=== PATIENT | female | born 1985 | race Caucasian/White ===

== ENCOUNTER 2018-04-06 11:49 | Inpatient (IN) | payer OTHER ==
--- NOTE | 2018-04-06 13:11 | HP ---
[facility] Rehab Assess/Revision - Admission History Admitted to Rehab from: [facility] Date of Admission to Rehab: 04/06/18 - Vital signs Vital Signs: Vital Signs Period Temp Pulse Resp BP Sys/Newell Pulse Ox Last 24 Hr 97.7 F 80 18 112/73 - Findings Detox History & Physical reviewed: Yes Concur with findings: Yes Comments/Additional Findings: for rehab as protocol Inpatient Rehab Admission - Initial Determination Are CD services needed?: Yes Free of communicable disease: Yes Not in need of hospitalization: Yes - Rehab Admission Criteria Previous failed treatment: Yes Poor recovery environment: Yes Comorbidities: Yes Lacks judgement: No Patient is meeting Inpatient Rehab admission criteria:: Yes
[2018-04-06] MEDS ORDERED: MAG HYDROX/AL HYDROX/SIMETH 30 ML UNIT-DOSE CUP PO PRN (13:12)
[2018-04-06] MEDS ORDERED: guaiFENesin/D-METHORPHAN HB 10 ML UNIT-DOSE CUPS PO PRN (13:12)
[2018-04-06] MEDS ORDERED: MAGNESIUM HYDROX 2400MG/30ML ORAL SUSPENSION 30 ML CUP PO PRN (13:12)
[2018-04-06] MEDS ORDERED: LOPERAMIDE HCL 2 MG CAPSULE PO PRN (13:12)
[2018-04-06] MEDS ORDERED: MENTHOL/PHENOL 1 EACH UD MM PRN (13:12)
[2018-04-06] MEDS ORDERED: MAGNESIUM CITRATE 300 ML BOTTLE PO PRN (13:12)
[2018-04-06] MEDS ORDERED: P-EPHED 60MG/TRIPROLIDI 2.5MG TABLET PO PRN (13:12)
[2018-04-06] MEDS: LITHIUM CARBONATE 300 MG CAPSULE (FP) PO SCH ×2 (17:40→21:48)
[2018-04-06] MEDS: ESCITALOPRAM OXALATE 20 MG TABLET (FP) PO SCH (17:40)
[2018-04-06] MEDS: THIAMINE HCL 100 MG TABLET (FP) PO SCH (21:47)
[2018-04-06] MEDS: levETIRAcetam 500 MG TABLET (FP) PO SCH (21:49)
[2018-04-06] MEDS ORDERED: MELATONIN 5 MG TABLETS PO PRN (22:00)
--- NOTE | 2018-04-06 23:06 | PN ---
S Progress Note Note: Vital Signs Temperature 97.7 F 04/06/18 12:10 Pulse Rate 80 04/06/18 12:10 Respiratory Rate 18 04/06/18 12:10 Blood Pressure 112/73 04/06/18 12:10 O2 Sat by Pulse Oximetry (%) keppra levels 04/03/18 at 8.4, asymptomatic. Repeat levels in AM.
[2018-04-07] MEDS ORDERED: METHADONE HCL 40 MG DISPERSABLE TABLET PO SCH (06:00)
[2018-04-07] MEDS ORDERED: METHADONE HCL 40 MG DISPERSABLE TABLET ONE (06:06)
[2018-04-07] MEDS ORDERED: METHADONE HCL 5 MG TABLET ONE (06:06)
[2018-04-07] MEDS ORDERED: METHADONE HCL 10 MG TABLET ONE (06:06)
[2018-04-07] MEDS: LITHIUM CARBONATE 300 MG CAPSULE (FP) PO SCH ×3 (06:48→21:44)
[2018-04-07] MEDS: METHADONE 80 MG, METHADONE 10 MG, METHADONE 5 MG PO SCH (06:49)
[2018-04-07] MEDS: PRENATAL VITAMINS W/ FOLIC ACID TABLET (FP) PO SCH (10:11)
[2018-04-07] MEDS: ESCITALOPRAM OXALATE 20 MG TABLET (FP) PO SCH (10:11)
[2018-04-07] MEDS: levETIRAcetam 500 MG TABLET (FP) PO SCH ×2 (10:11→21:44)
[2018-04-07] MEDS: RANITIDINE HCL 150 MG TABLET (FP) PO SCH (10:11)
[2018-04-07] MEDS: FUROSEMIDE 20 MG TABLET (FP) PO SCH (10:11)
[2018-04-07] MEDS: THIAMINE HCL 100 MG TABLET (FP) PO SCH (21:44)
[2018-04-08] MEDS ORDERED: METHADONE HCL 5 MG TABLET ONE (03:58)
[2018-04-08] MEDS ORDERED: METHADONE HCL 10 MG TABLET ONE (03:58)
[2018-04-08] MEDS ORDERED: METHADONE HCL 40 MG DISPERSABLE TABLET ONE (03:59)
[2018-04-08] MEDS: LITHIUM CARBONATE 300 MG CAPSULE (FP) PO SCH ×2 (06:37→13:46)
[2018-04-08] MEDS: METHADONE 80 MG, METHADONE 10 MG, METHADONE 5 MG PO SCH (06:37)
[2018-04-08] MEDS: RANITIDINE HCL 150 MG TABLET (FP) PO SCH (10:33)
[2018-04-08] MEDS: levETIRAcetam 500 MG TABLET (FP) PO SCH ×2 (10:33→21:27)
[2018-04-08] MEDS: PRENATAL VITAMINS W/ FOLIC ACID TABLET (FP) PO SCH (10:33)
[2018-04-08] MEDS: FUROSEMIDE 20 MG TABLET (FP) PO SCH (10:33)
[2018-04-08] MEDS: ESCITALOPRAM OXALATE 20 MG TABLET (FP) PO SCH (10:33)
[2018-04-08] MEDS: hydrOXYzine PAMOATE 50 MG CAPSULE (FP) PO PRN ×2 (10:34→21:28)
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
[2018-04-08] MEDS: THIAMINE HCL 100 MG TABLET (FP) PO SCH (21:27)
[2018-04-09] MEDS ORDERED: METHADONE HCL 10 MG TABLET ONE (02:38)
[2018-04-09] MEDS ORDERED: METHADONE HCL 40 MG DISPERSABLE TABLET ONE (02:38)
[2018-04-09] MEDS ORDERED: METHADONE HCL 5 MG TABLET ONE (02:38)
[2018-04-09] MEDS: METHADONE 80 MG, METHADONE 10 MG, METHADONE 5 MG PO SCH (06:41)
[2018-04-09] MEDS: ESCITALOPRAM OXALATE 20 MG TABLET (FP) PO SCH (10:20)
[2018-04-09] MEDS: FUROSEMIDE 20 MG TABLET (FP) PO SCH (10:20)
[2018-04-09] MEDS: PRENATAL VITAMINS W/ FOLIC ACID TABLET (FP) PO SCH (10:20)
[2018-04-09] MEDS: levETIRAcetam 500 MG TABLET (FP) PO SCH ×2 (10:20→21:51)
[2018-04-09] MEDS: RANITIDINE HCL 150 MG TABLET (FP) PO SCH (10:20)
[2018-04-09] MEDS: THIAMINE HCL 100 MG TABLET (FP) PO SCH (21:51)
[2018-04-09] MEDS: hydrOXYzine PAMOATE 50 MG CAPSULE (FP) PO PRN (21:51)
[2018-04-10] MEDS ORDERED: METHADONE HCL 10 MG TABLET ONE (05:50)
[2018-04-10] MEDS ORDERED: METHADONE HCL 5 MG TABLET ONE (05:50)
[2018-04-10] MEDS ORDERED: METHADONE HCL 40 MG DISPERSABLE TABLET ONE (05:51)
[2018-04-10] MEDS: METHADONE 80 MG, METHADONE 10 MG, METHADONE 5 MG PO SCH (06:23)
[2018-04-10] MEDS: ESCITALOPRAM OXALATE 20 MG TABLET (FP) PO SCH (10:36)
[2018-04-10] MEDS: levETIRAcetam 500 MG TABLET (FP) PO SCH ×2 (10:36→21:46)
[2018-04-10] MEDS: RANITIDINE HCL 150 MG TABLET (FP) PO SCH (10:36)
[2018-04-10] MEDS: FUROSEMIDE 20 MG TABLET (FP) PO SCH (10:37)
[2018-04-10] MEDS: PRENATAL VITAMINS W/ FOLIC ACID TABLET (FP) PO SCH (10:37)
--- NOTE | 2018-04-10 12:22 | PN ---
S Progress Note Note: Repeat Keppra level 8.3. Patient asymptomatic. Will continue Keppra as ordered and repeat level 04/13/18.
[2018-04-10] MEDS: hydrOXYzine PAMOATE 50 MG CAPSULE (FP) PO PRN ×2 (13:41→21:46)
[2018-04-10] MEDS: THIAMINE HCL 100 MG TABLET (FP) PO SCH (21:46)
[2018-04-11] MEDS ORDERED: METHADONE HCL 5 MG TABLET ONE (05:57)
[2018-04-11] MEDS ORDERED: METHADONE HCL 40 MG DISPERSABLE TABLET ONE (05:58)
[2018-04-11] MEDS ORDERED: METHADONE HCL 10 MG TABLET ONE (05:58)
[2018-04-11] MEDS: METHADONE 80 MG, METHADONE 10 MG, METHADONE 5 MG PO SCH (06:52)
[2018-04-11] MEDS: RANITIDINE HCL 150 MG TABLET (FP) PO SCH (10:11)
[2018-04-11] MEDS: ESCITALOPRAM OXALATE 20 MG TABLET (FP) PO SCH (10:11)
[2018-04-11] MEDS: PRENATAL VITAMINS W/ FOLIC ACID TABLET (FP) PO SCH (10:11)
[2018-04-11] MEDS: levETIRAcetam 500 MG TABLET (FP) PO SCH ×2 (10:11→22:10)
[2018-04-11] MEDS: FUROSEMIDE 20 MG TABLET (FP) PO SCH (10:11)
[2018-04-11] MEDS: hydrOXYzine PAMOATE 50 MG CAPSULE (FP) PO PRN (22:10)
[2018-04-11] MEDS: THIAMINE HCL 100 MG TABLET (FP) PO SCH (22:10)
[2018-04-11] MEDS ORDERED: PT OWN MED DRAWER 7, Y5N ONE (23:31)
[2018-04-12] MEDS ORDERED: METHADONE HCL 5 MG TABLET ONE (06:00)
[2018-04-12] MEDS ORDERED: METHADONE HCL 10 MG TABLET ONE (06:00)
[2018-04-12] MEDS ORDERED: METHADONE HCL 40 MG DISPERSABLE TABLET ONE (06:01)
[2018-04-12] MEDS: METHADONE 80 MG, METHADONE 10 MG, METHADONE 5 MG PO SCH (06:40)
[2018-04-12] MEDS: FUROSEMIDE 20 MG TABLET (FP) PO SCH (10:25)
[2018-04-12] MEDS: PRENATAL VITAMINS W/ FOLIC ACID TABLET (FP) PO SCH (10:25)
[2018-04-12] MEDS: ESCITALOPRAM OXALATE 20 MG TABLET (FP) PO SCH (10:25)
[2018-04-12] MEDS: levETIRAcetam 500 MG TABLET (FP) PO SCH ×2 (10:26→22:04)
[2018-04-12] MEDS: hydrOXYzine PAMOATE 50 MG CAPSULE (FP) PO PRN ×2 (10:26→22:04)
[2018-04-12] MEDS: RANITIDINE HCL 150 MG TABLET (FP) PO SCH (10:26)
[2018-04-12] MEDS: THIAMINE HCL 100 MG TABLET (FP) PO SCH (22:04)
[2018-04-13] MEDS ORDERED: METHADONE HCL 5 MG TABLET ONE (03:36)
[2018-04-13] MEDS ORDERED: METHADONE HCL 40 MG DISPERSABLE TABLET ONE (03:37)
[2018-04-13] MEDS ORDERED: METHADONE HCL 10 MG TABLET ONE (03:37)
[2018-04-13] MEDS: METHADONE 80 MG, METHADONE 10 MG, METHADONE 5 MG PO SCH (06:56)
[2018-04-13] MEDS: ESCITALOPRAM OXALATE 20 MG TABLET (FP) PO SCH (10:30)
[2018-04-13] MEDS: FUROSEMIDE 20 MG TABLET (FP) PO SCH (10:30)
[2018-04-13] MEDS: RANITIDINE HCL 150 MG TABLET (FP) PO SCH (10:30)
[2018-04-13] MEDS: PRENATAL VITAMINS W/ FOLIC ACID TABLET (FP) PO SCH (10:30)
[2018-04-13] MEDS: levETIRAcetam 500 MG TABLET (FP) PO SCH ×2 (10:30→21:52)
[2018-04-13] MEDS: ACETAMINOPHEN 325 MG TABLET (FP) PO PRN (15:29)
[2018-04-13] MEDS: THIAMINE HCL 100 MG TABLET (FP) PO SCH (21:52)
[2018-04-13] MEDS: hydrOXYzine PAMOATE 50 MG CAPSULE (FP) PO PRN (21:52)
[2018-04-14] MEDS ORDERED: METHADONE HCL 10 MG TABLET ONE (05:54)
[2018-04-14] MEDS ORDERED: METHADONE HCL 5 MG TABLET ONE (05:54)
[2018-04-14] MEDS ORDERED: METHADONE HCL 40 MG DISPERSABLE TABLET ONE (05:55)
[2018-04-14] MEDS: METHADONE 80 MG, METHADONE 10 MG, METHADONE 5 MG PO SCH (06:20)
[2018-04-14] MEDS: RANITIDINE HCL 150 MG TABLET (FP) PO SCH (10:00)
[2018-04-14] MEDS: levETIRAcetam 500 MG TABLET (FP) PO SCH ×2 (10:31→21:48)
[2018-04-14] MEDS: FUROSEMIDE 20 MG TABLET (FP) PO SCH (10:31)
[2018-04-14] MEDS: ESCITALOPRAM OXALATE 20 MG TABLET (FP) PO SCH (10:32)
[2018-04-14] MEDS: PRENATAL VITAMINS W/ FOLIC ACID TABLET (FP) PO SCH (10:32)
[2018-04-14] MEDS: THIAMINE HCL 100 MG TABLET (FP) PO SCH (21:48)
[2018-04-15] MEDS ORDERED: METHADONE HCL 5 MG TABLET ONE (03:32)
[2018-04-15] MEDS ORDERED: METHADONE HCL 10 MG TABLET ONE (03:33)
[2018-04-15] MEDS ORDERED: METHADONE HCL 40 MG DISPERSABLE TABLET ONE (03:33)
[2018-04-15] MEDS: METHADONE 80 MG, METHADONE 10 MG, METHADONE 5 MG PO SCH (06:48)
[2018-04-15] MEDS: PRENATAL VITAMINS W/ FOLIC ACID TABLET (FP) PO SCH (10:33)
[2018-04-15] MEDS: levETIRAcetam 500 MG TABLET (FP) PO SCH ×2 (10:33→22:00)
[2018-04-15] MEDS: RANITIDINE HCL 150 MG TABLET (FP) PO SCH (10:33)
[2018-04-15] MEDS: FUROSEMIDE 20 MG TABLET (FP) PO SCH (10:34)
[2018-04-15] MEDS: ESCITALOPRAM OXALATE 20 MG TABLET (FP) PO SCH (10:34)
[2018-04-15] MEDS: THIAMINE HCL 100 MG TABLET (FP) PO SCH (22:00)
[2018-04-15] MEDS: hydrOXYzine PAMOATE 50 MG CAPSULE (FP) PO PRN (22:00)
[2018-04-16] MEDS ORDERED: METHADONE HCL 5 MG TABLET ONE (03:24)
[2018-04-16] MEDS ORDERED: METHADONE HCL 10 MG TABLET ONE (03:24)
[2018-04-16] MEDS ORDERED: METHADONE HCL 40 MG DISPERSABLE TABLET ONE (03:25)
[2018-04-16] MEDS: METHADONE 80 MG, METHADONE 10 MG, METHADONE 5 MG PO SCH (06:54)
[2018-04-16] MEDS: ESCITALOPRAM OXALATE 20 MG TABLET (FP) PO SCH (10:23)
[2018-04-16] MEDS: levETIRAcetam 500 MG TABLET (FP) PO SCH ×2 (10:23→22:02)
[2018-04-16] MEDS: PRENATAL VITAMINS W/ FOLIC ACID TABLET (FP) PO SCH (10:23)
[2018-04-16] MEDS: FUROSEMIDE 20 MG TABLET (FP) PO SCH (10:23)
[2018-04-16] MEDS: RANITIDINE HCL 150 MG TABLET (FP) PO SCH (10:23)
[2018-04-16] MEDS: ACETAMINOPHEN 325 MG TABLET (FP) PO PRN (18:53)
[2018-04-16] MEDS: hydrOXYzine PAMOATE 50 MG CAPSULE (FP) PO PRN (22:02)
[2018-04-16] MEDS: THIAMINE HCL 100 MG TABLET (FP) PO SCH (22:02)
[2018-04-17] MEDS ORDERED: METHADONE HCL 10 MG TABLET ONE (05:57)
[2018-04-17] MEDS ORDERED: METHADONE HCL 5 MG TABLET ONE (05:57)
[2018-04-17] MEDS ORDERED: METHADONE HCL 40 MG DISPERSABLE TABLET ONE (05:58)
[2018-04-17] MEDS: METHADONE 80 MG, METHADONE 10 MG, METHADONE 5 MG PO SCH (06:47)
[2018-04-17] MEDS: RANITIDINE HCL 150 MG TABLET (FP) PO SCH (11:00)
[2018-04-17] MEDS: ESCITALOPRAM OXALATE 20 MG TABLET (FP) PO SCH (11:00)
[2018-04-17] MEDS: PRENATAL VITAMINS W/ FOLIC ACID TABLET (FP) PO SCH (11:00)
[2018-04-17] MEDS: levETIRAcetam 500 MG TABLET (FP) PO SCH ×2 (11:00→21:50)
[2018-04-17] MEDS: FUROSEMIDE 20 MG TABLET (FP) PO SCH (11:00)
[2018-04-17] MEDS: hydrOXYzine PAMOATE 50 MG CAPSULE (FP) PO PRN (21:50)
[2018-04-17] MEDS: THIAMINE HCL 100 MG TABLET (FP) PO SCH (21:50)
[2018-04-18] MEDS ORDERED: METHADONE HCL 5 MG TABLET ONE (05:09)
[2018-04-18] MEDS ORDERED: METHADONE HCL 40 MG DISPERSABLE TABLET ONE (05:10)
[2018-04-18] MEDS ORDERED: METHADONE HCL 10 MG TABLET ONE (05:10)
[2018-04-18] MEDS: METHADONE 80 MG, METHADONE 10 MG, METHADONE 5 MG PO SCH (06:08)
[2018-04-18] MEDS: FUROSEMIDE 20 MG TABLET (FP) PO SCH (10:15)
[2018-04-18] MEDS: levETIRAcetam 500 MG TABLET (FP) PO SCH ×2 (10:20→21:40)
[2018-04-18] MEDS: RANITIDINE HCL 150 MG TABLET (FP) PO SCH (10:20)
[2018-04-18] MEDS: ESCITALOPRAM OXALATE 20 MG TABLET (FP) PO SCH (10:21)
[2018-04-18] MEDS: PRENATAL VITAMINS W/ FOLIC ACID TABLET (FP) PO SCH (10:21)
[2018-04-18] MEDS ORDERED: levETIRAcetam 250 MG TABLET (FP) PO ONE (20:40)
[2018-04-18] MEDS: THIAMINE HCL 100 MG TABLET (FP) PO SCH (21:39)
[2018-04-18] MEDS: hydrOXYzine PAMOATE 50 MG CAPSULE (FP) PO PRN (21:40)
[2018-04-19] MEDS ORDERED: METHADONE HCL 5 MG TABLET ONE (03:24)
[2018-04-19] MEDS ORDERED: METHADONE HCL 10 MG TABLET ONE (03:25)
[2018-04-19] MEDS ORDERED: METHADONE HCL 40 MG DISPERSABLE TABLET ONE (03:25)
[2018-04-19] MEDS: METHADONE 80 MG, METHADONE 10 MG, METHADONE 5 MG PO SCH (06:29)
[2018-04-19] MEDS ORDERED: PT OWN MED DRAWER 7, Y5N ONE ×2 (09:02→20:19)
[2018-04-19] MEDS: FUROSEMIDE 20 MG TABLET (FP) PO SCH (10:17)
[2018-04-19] MEDS: PRENATAL VITAMINS W/ FOLIC ACID TABLET (FP) PO SCH (10:17)
[2018-04-19] MEDS: ESCITALOPRAM OXALATE 20 MG TABLET (FP) PO SCH (10:17)
[2018-04-19] MEDS: RANITIDINE HCL 150 MG TABLET (FP) PO SCH (10:17)
[2018-04-19] MEDS: levETIRAcetam 500 MG TABLET (FP) PO SCH ×2 (10:17→21:49)
[2018-04-19] MEDS: THIAMINE HCL 100 MG TABLET (FP) PO SCH (21:49)
[2018-04-19] MEDS: hydrOXYzine PAMOATE 50 MG CAPSULE (FP) PO PRN (21:49)
[2018-04-20] MEDS ORDERED: METHADONE HCL 5 MG TABLET ONE (03:18)
[2018-04-20] MEDS ORDERED: METHADONE HCL 40 MG DISPERSABLE TABLET ONE (03:18)
[2018-04-20] MEDS ORDERED: METHADONE HCL 10 MG TABLET ONE (03:18)
[2018-04-20] MEDS ORDERED: METHADONE HCL 10 MG TABLET PO SCH (06:15)
[2018-04-20] MEDS: METHADONE 80 MG, METHADONE 10 MG, METHADONE 5 MG PO SCH (06:42)
[2018-04-20] MEDS: PRENATAL VITAMINS W/ FOLIC ACID TABLET (FP) PO SCH (10:45)
[2018-04-20] MEDS: FUROSEMIDE 20 MG TABLET (FP) PO SCH (10:45)
[2018-04-20] MEDS: ESCITALOPRAM OXALATE 20 MG TABLET (FP) PO SCH (10:46)
[2018-04-20] MEDS: levETIRAcetam 500 MG TABLET (FP) PO SCH ×2 (10:46→22:30)
[2018-04-20] MEDS: RANITIDINE HCL 150 MG TABLET (FP) PO SCH (10:46)
[2018-04-20] MEDS: hydrOXYzine PAMOATE 50 MG CAPSULE (FP) PO PRN (22:30)
[2018-04-20] MEDS: THIAMINE HCL 100 MG TABLET (FP) PO SCH (22:30)
[2018-04-21] MEDS ORDERED: METHADONE HCL 10 MG TABLET ONE (06:15)
[2018-04-21] MEDS ORDERED: METHADONE HCL 5 MG TABLET ONE (06:15)
[2018-04-21] MEDS ORDERED: METHADONE HCL 40 MG DISPERSABLE TABLET ONE (06:16)
[2018-04-21] MEDS: METHADONE 80 MG, METHADONE 10 MG, METHADONE 5 MG PO SCH (06:46)
[2018-04-21] MEDS ORDERED: PT OWN MED DRAWER 7, Y5N ONE ×4 (09:06→23:01)
[2018-04-21] MEDS: RANITIDINE HCL 150 MG TABLET (FP) PO SCH (09:16)
[2018-04-21] MEDS: ESCITALOPRAM OXALATE 20 MG TABLET (FP) PO SCH (09:16)
[2018-04-21] MEDS: PRENATAL VITAMINS W/ FOLIC ACID TABLET (FP) PO SCH (09:16)
[2018-04-21] MEDS: FUROSEMIDE 20 MG TABLET (FP) PO SCH (09:16)
[2018-04-21] MEDS: levETIRAcetam 500 MG TABLET (FP) PO SCH ×2 (09:16→22:27)
[2018-04-21] MEDS: IBUPROFEN 400 MG TABLET (FP) PO PRN (15:42)
[2018-04-21] MEDS: THIAMINE HCL 100 MG TABLET (FP) PO SCH (22:27)
[2018-04-21] MEDS: hydrOXYzine PAMOATE 50 MG CAPSULE (FP) PO PRN (22:27)
[2018-04-22] MEDS ORDERED: METHADONE HCL 10 MG TABLET ONE (03:20)
[2018-04-22] MEDS ORDERED: METHADONE HCL 5 MG TABLET ONE (03:20)
[2018-04-22] MEDS ORDERED: METHADONE HCL 40 MG DISPERSABLE TABLET ONE (03:20)
[2018-04-22] MEDS: METHADONE 80 MG, METHADONE 10 MG, METHADONE 5 MG PO SCH (06:38)
[2018-04-22] MEDS ORDERED: PT OWN MED DRAWER 7, Y5N ONE (08:48)
[2018-04-22] MEDS: levETIRAcetam 500 MG TABLET (FP) PO SCH ×2 (09:53→21:34)
[2018-04-22] MEDS: ESCITALOPRAM OXALATE 20 MG TABLET (FP) PO SCH (09:53)
[2018-04-22] MEDS: FUROSEMIDE 20 MG TABLET (FP) PO SCH (09:53)
[2018-04-22] MEDS: RANITIDINE HCL 150 MG TABLET (FP) PO SCH (09:53)
[2018-04-22] MEDS: PRENATAL VITAMINS W/ FOLIC ACID TABLET (FP) PO SCH (09:53)
[2018-04-22] MEDS: THIAMINE HCL 100 MG TABLET (FP) PO SCH (21:34)
[2018-04-22] MEDS: hydrOXYzine PAMOATE 50 MG CAPSULE (FP) PO PRN (21:34)
[2018-04-23] MEDS ORDERED: METHADONE HCL 10 MG TABLET ONE (05:10)
[2018-04-23] MEDS ORDERED: METHADONE HCL 5 MG TABLET ONE (05:10)
[2018-04-23] MEDS ORDERED: METHADONE HCL 40 MG DISPERSABLE TABLET ONE (05:11)
[2018-04-23] MEDS: METHADONE 80 MG, METHADONE 10 MG, METHADONE 5 MG PO SCH (06:37)
[2018-04-23] MEDS: PRENATAL VITAMINS W/ FOLIC ACID TABLET (FP) PO SCH (10:16)
[2018-04-23] MEDS: levETIRAcetam 500 MG TABLET (FP) PO SCH ×2 (10:16→21:52)
[2018-04-23] MEDS: ESCITALOPRAM OXALATE 20 MG TABLET (FP) PO SCH (10:16)
[2018-04-23] MEDS: FUROSEMIDE 20 MG TABLET (FP) PO SCH (10:16)
[2018-04-23] MEDS: RANITIDINE HCL 150 MG TABLET (FP) PO SCH (10:16)
[2018-04-23] MEDS: IBUPROFEN 400 MG TABLET (FP) PO PRN ×2 (10:17→21:54)
[2018-04-23] MEDS: hydrOXYzine PAMOATE 50 MG CAPSULE (FP) PO PRN (21:52)
[2018-04-23] MEDS: THIAMINE HCL 100 MG TABLET (FP) PO SCH (21:52)
[2018-04-23] MEDS ORDERED: PT OWN MED DRAWER 7, Y5N ONE (22:30)
[2018-04-24] MEDS ORDERED: METHADONE HCL 40 MG DISPERSABLE TABLET ONE (03:23)
[2018-04-24] MEDS ORDERED: METHADONE HCL 10 MG TABLET ONE (03:23)
[2018-04-24] MEDS ORDERED: METHADONE HCL 5 MG TABLET ONE (03:23)
[2018-04-24] MEDS: METHADONE 80 MG, METHADONE 10 MG, METHADONE 5 MG PO SCH (06:30)
[2018-04-24] MEDS: PRENATAL VITAMINS W/ FOLIC ACID TABLET (FP) PO SCH (10:36)
[2018-04-24] MEDS: RANITIDINE HCL 150 MG TABLET (FP) PO SCH (10:36)
[2018-04-24] MEDS: ESCITALOPRAM OXALATE 20 MG TABLET (FP) PO SCH (10:36)
[2018-04-24] MEDS: FUROSEMIDE 20 MG TABLET (FP) PO SCH (10:36)
[2018-04-24] MEDS: levETIRAcetam 500 MG TABLET (FP) PO SCH ×2 (10:36→22:05)
[2018-04-24] MEDS: THIAMINE HCL 100 MG TABLET (FP) PO SCH (22:05)
[2018-04-24] MEDS: hydrOXYzine PAMOATE 50 MG CAPSULE (FP) PO PRN (22:06)
[2018-04-25] MEDS ORDERED: METHADONE HCL 5 MG TABLET ONE (06:37)
[2018-04-25] MEDS ORDERED: METHADONE HCL 10 MG TABLET ONE (06:37)
[2018-04-25] MEDS: METHADONE 80 MG, METHADONE 10 MG, METHADONE 5 MG PO SCH (06:38)
[2018-04-25] MEDS ORDERED: METHADONE HCL 40 MG DISPERSABLE TABLET ONE (06:38)
[2018-04-25] MEDS: ESCITALOPRAM OXALATE 20 MG TABLET (FP) PO SCH (10:15)
[2018-04-25] MEDS: levETIRAcetam 500 MG TABLET (FP) PO SCH ×2 (10:15→21:53)
[2018-04-25] MEDS: PRENATAL VITAMINS W/ FOLIC ACID TABLET (FP) PO SCH (10:15)
[2018-04-25] MEDS: FUROSEMIDE 20 MG TABLET (FP) PO SCH (10:15)
[2018-04-25] MEDS: RANITIDINE HCL 150 MG TABLET (FP) PO SCH (10:15)
[2018-04-25] MEDS: IBUPROFEN 400 MG TABLET (FP) PO PRN ×2 (11:22→21:54)
[2018-04-25] MEDS ORDERED: PT OWN MED DRAWER 7, Y5N ONE (19:44)
[2018-04-25] MEDS: THIAMINE HCL 100 MG TABLET (FP) PO SCH (21:53)
[2018-04-25] MEDS: hydrOXYzine PAMOATE 50 MG CAPSULE (FP) PO PRN (21:53)
[2018-04-26] MEDS ORDERED: METHADONE HCL 10 MG TABLET ONE (06:35)
[2018-04-26] MEDS ORDERED: METHADONE HCL 5 MG TABLET ONE (06:35)
[2018-04-26] MEDS ORDERED: METHADONE HCL 40 MG DISPERSABLE TABLET ONE (06:36)
[2018-04-26] MEDS: METHADONE 80 MG, METHADONE 10 MG, METHADONE 5 MG PO SCH (06:36)
[2018-04-26] MEDS: FUROSEMIDE 20 MG TABLET (FP) PO SCH (09:41)
[2018-04-26] MEDS: ESCITALOPRAM OXALATE 20 MG TABLET (FP) PO SCH (09:41)
[2018-04-26] MEDS: RANITIDINE HCL 150 MG TABLET (FP) PO SCH (09:41)
[2018-04-26] MEDS: PRENATAL VITAMINS W/ FOLIC ACID TABLET (FP) PO SCH (09:41)
[2018-04-26] MEDS: levETIRAcetam 500 MG TABLET (FP) PO SCH ×2 (09:41→21:46)
[2018-04-26] MEDS: hydrOXYzine PAMOATE 50 MG CAPSULE (FP) PO PRN (21:46)
[2018-04-26] MEDS: THIAMINE HCL 100 MG TABLET (FP) PO SCH (21:46)
[2018-04-27] MEDS ORDERED: METHADONE HCL 5 MG TABLET ONE (06:32)
[2018-04-27] MEDS: METHADONE 80 MG, METHADONE 10 MG, METHADONE 5 MG PO SCH (06:33)
[2018-04-27] MEDS ORDERED: METHADONE HCL 10 MG TABLET ONE (06:33)
[2018-04-27] MEDS ORDERED: METHADONE HCL 40 MG DISPERSABLE TABLET ONE (06:33)
[2018-04-27] MEDS ORDERED: PT OWN MED DRAWER 7, Y5N ONE (08:50)
[2018-04-27] MEDS: PRENATAL VITAMINS W/ FOLIC ACID TABLET (FP) PO SCH (10:37)
[2018-04-27] MEDS: ESCITALOPRAM OXALATE 20 MG TABLET (FP) PO SCH (10:37)
[2018-04-27] MEDS: RANITIDINE HCL 150 MG TABLET (FP) PO SCH (10:37)
[2018-04-27] MEDS: levETIRAcetam 500 MG TABLET (FP) PO SCH ×2 (10:37→21:55)
[2018-04-27] MEDS: FUROSEMIDE 20 MG TABLET (FP) PO SCH (10:37)
[2018-04-27] MEDS: THIAMINE HCL 100 MG TABLET (FP) PO SCH (21:55)
[2018-04-27] MEDS: DOCUSATE SODIUM 100 MG CAPSULE (FP) PO SCH (21:55)
[2018-04-27] MEDS: hydrOXYzine PAMOATE 50 MG CAPSULE (FP) PO PRN (21:55)
[2018-04-28] MEDS ORDERED: METHADONE HCL 40 MG DISPERSABLE TABLET ONE (03:23)
[2018-04-28] MEDS ORDERED: METHADONE HCL 10 MG TABLET ONE (03:23)
[2018-04-28] MEDS ORDERED: METHADONE HCL 5 MG TABLET ONE (03:23)
[2018-04-28] MEDS: METHADONE 80 MG, METHADONE 10 MG, METHADONE 5 MG PO SCH (06:16)
[2018-04-28] MEDS: DOCUSATE SODIUM 100 MG CAPSULE (FP) PO SCH ×3 (06:17→21:33)
[2018-04-28] MEDS: ESCITALOPRAM OXALATE 20 MG TABLET (FP) PO SCH (10:26)
[2018-04-28] MEDS: PRENATAL VITAMINS W/ FOLIC ACID TABLET (FP) PO SCH (10:26)
[2018-04-28] MEDS: levETIRAcetam 500 MG TABLET (FP) PO SCH ×2 (10:26→21:33)
[2018-04-28] MEDS: RANITIDINE HCL 150 MG TABLET (FP) PO SCH (10:26)
[2018-04-28] MEDS: FUROSEMIDE 20 MG TABLET (FP) PO SCH (10:26)
[2018-04-28] MEDS: hydrOXYzine PAMOATE 50 MG CAPSULE (FP) PO PRN (21:33)
[2018-04-28] MEDS: THIAMINE HCL 100 MG TABLET (FP) PO SCH (21:33)
[2018-04-29] MEDS ORDERED: METHADONE HCL 5 MG TABLET ONE (06:01)
[2018-04-29] MEDS ORDERED: METHADONE HCL 40 MG DISPERSABLE TABLET ONE (06:02)
[2018-04-29] MEDS ORDERED: METHADONE HCL 10 MG TABLET ONE (06:02)
[2018-04-29] MEDS: METHADONE 80 MG, METHADONE 10 MG, METHADONE 5 MG PO SCH (06:08)
[2018-04-29] MEDS: DOCUSATE SODIUM 100 MG CAPSULE (FP) PO SCH ×3 (06:08→21:52)
[2018-04-29] MEDS ORDERED: PT OWN MED DRAWER 7, Y5N ONE ×2 (10:01→10:30)
[2018-04-29] MEDS: levETIRAcetam 500 MG TABLET (FP) PO SCH ×2 (10:17→21:52)
[2018-04-29] MEDS: RANITIDINE HCL 150 MG TABLET (FP) PO SCH (10:17)
[2018-04-29] MEDS: FUROSEMIDE 20 MG TABLET (FP) PO SCH (10:17)
[2018-04-29] MEDS: ESCITALOPRAM OXALATE 20 MG TABLET (FP) PO SCH (10:17)
[2018-04-29] MEDS: PRENATAL VITAMINS W/ FOLIC ACID TABLET (FP) PO SCH (10:18)
[2018-04-29] MEDS: THIAMINE HCL 100 MG TABLET (FP) PO SCH (21:52)
[2018-04-29] MEDS: hydrOXYzine PAMOATE 50 MG CAPSULE (FP) PO PRN (21:52)
[2018-04-30] MEDS ORDERED: METHADONE HCL 40 MG DISPERSABLE TABLET ONE (03:24)
[2018-04-30] MEDS ORDERED: METHADONE HCL 5 MG TABLET ONE (03:24)
[2018-04-30] MEDS ORDERED: METHADONE HCL 10 MG TABLET ONE (03:24)
[2018-04-30] MEDS: METHADONE 80 MG, METHADONE 10 MG, METHADONE 5 MG PO SCH (06:27)
[2018-04-30] MEDS: DOCUSATE SODIUM 100 MG CAPSULE (FP) PO SCH ×3 (06:28→21:55)
[2018-04-30] MEDS: RANITIDINE HCL 150 MG TABLET (FP) PO SCH (10:15)
[2018-04-30] MEDS: PRENATAL VITAMINS W/ FOLIC ACID TABLET (FP) PO SCH (10:15)
[2018-04-30] MEDS: levETIRAcetam 500 MG TABLET (FP) PO SCH ×2 (10:15→21:55)
[2018-04-30] MEDS: ESCITALOPRAM OXALATE 20 MG TABLET (FP) PO SCH (10:15)
[2018-04-30] MEDS: FUROSEMIDE 20 MG TABLET (FP) PO SCH (10:15)
[2018-04-30] MEDS: THIAMINE HCL 100 MG TABLET (FP) PO SCH (21:55)
[2018-04-30] MEDS: hydrOXYzine PAMOATE 50 MG CAPSULE (FP) PO PRN (21:56)
[2018-05-01] MEDS ORDERED: METHADONE HCL 5 MG TABLET ONE (06:32)
[2018-05-01] MEDS ORDERED: METHADONE HCL 40 MG DISPERSABLE TABLET ONE (06:33)
[2018-05-01] MEDS ORDERED: METHADONE HCL 10 MG TABLET ONE (06:33)
[2018-05-01] MEDS: DOCUSATE SODIUM 100 MG CAPSULE (FP) PO SCH ×3 (06:33→21:33)
[2018-05-01] MEDS: METHADONE 80 MG, METHADONE 10 MG, METHADONE 5 MG PO SCH (06:34)
[2018-05-01] MEDS: ESCITALOPRAM OXALATE 20 MG TABLET (FP) PO SCH (10:13)
[2018-05-01] MEDS: PRENATAL VITAMINS W/ FOLIC ACID TABLET (FP) PO SCH (10:13)
[2018-05-01] MEDS: RANITIDINE HCL 150 MG TABLET (FP) PO SCH (10:13)
[2018-05-01] MEDS: levETIRAcetam 500 MG TABLET (FP) PO SCH ×2 (10:13→21:33)
[2018-05-01] MEDS: FUROSEMIDE 20 MG TABLET (FP) PO SCH (10:14)
--- NOTE | 2018-05-01 13:50 | PN ---
KALPANA Progress Note Note: Patient reported to RN that she had an aura yesterday. Has history of seizures and last seizure one year ago. Currently on Keppra and lab test for level pending. Patient is medically stable. Denies any symptoms today. Alert and oriented x 3. In NAD. Ambulating in unit freely. Will continue same dose of keppra. Continue to monitor clinically. Vital Signs Temperature 98.0 F 05/01/18 07:23 Pulse Rate 79 05/01/18 09:22 Respiratory Rate 18 05/01/18 07:23 Blood Pressure 119/80 05/01/18 09:22 O2 Sat by Pulse Oximetry (%)
[2018-05-01] MEDS: THIAMINE HCL 100 MG TABLET (FP) PO SCH (21:33)
[2018-05-01] MEDS: hydrOXYzine PAMOATE 50 MG CAPSULE (FP) PO PRN (21:33)
[2018-05-02] MEDS ORDERED: METHADONE HCL 5 MG TABLET ONE (03:28)
[2018-05-02] MEDS ORDERED: METHADONE HCL 10 MG TABLET ONE (03:28)
[2018-05-02] MEDS ORDERED: METHADONE HCL 40 MG DISPERSABLE TABLET ONE (03:29)
[2018-05-02] MEDS: METHADONE 80 MG, METHADONE 10 MG, METHADONE 5 MG PO SCH (06:30)
[2018-05-02] MEDS: DOCUSATE SODIUM 100 MG CAPSULE (FP) PO SCH ×3 (06:31→21:17)
[2018-05-02] MEDS: levETIRAcetam 500 MG TABLET (FP) PO SCH ×2 (09:46→21:17)
[2018-05-02] MEDS: FUROSEMIDE 20 MG TABLET (FP) PO SCH (09:46)
[2018-05-02] MEDS: PRENATAL VITAMINS W/ FOLIC ACID TABLET (FP) PO SCH (09:46)
[2018-05-02] MEDS: ESCITALOPRAM OXALATE 20 MG TABLET (FP) PO SCH (09:46)
[2018-05-02] MEDS: RANITIDINE HCL 150 MG TABLET (FP) PO SCH (09:46)
[2018-05-02] MEDS: THIAMINE HCL 100 MG TABLET (FP) PO SCH (21:17)
[2018-05-02] MEDS: hydrOXYzine PAMOATE 50 MG CAPSULE (FP) PO PRN (21:17)
[2018-05-02] MEDS ORDERED: PT OWN MED DRAWER 7, Y5N ONE (22:11)
[2018-05-03] MEDS ORDERED: METHADONE HCL 5 MG TABLET ONE (03:08)
[2018-05-03] MEDS ORDERED: METHADONE HCL 40 MG DISPERSABLE TABLET ONE (03:09)
[2018-05-03] MEDS ORDERED: METHADONE HCL 10 MG TABLET ONE (03:09)
[2018-05-03] MEDS: METHADONE 80 MG, METHADONE 10 MG, METHADONE 5 MG PO SCH (06:50)
[2018-05-03] MEDS: DOCUSATE SODIUM 100 MG CAPSULE (FP) PO SCH ×3 (06:51→21:29)
[2018-05-03] MEDS: levETIRAcetam 500 MG TABLET (FP) PO SCH ×2 (10:03→21:29)
[2018-05-03] MEDS: FUROSEMIDE 20 MG TABLET (FP) PO SCH (10:04)
[2018-05-03] MEDS: RANITIDINE HCL 150 MG TABLET (FP) PO SCH (10:04)
[2018-05-03] MEDS: ESCITALOPRAM OXALATE 20 MG TABLET (FP) PO SCH (10:04)
[2018-05-03] MEDS: PRENATAL VITAMINS W/ FOLIC ACID TABLET (FP) PO SCH (10:04)
[2018-05-03] MEDS: hydrOXYzine PAMOATE 50 MG CAPSULE (FP) PO PRN (21:29)
[2018-05-03] MEDS: THIAMINE HCL 100 MG TABLET (FP) PO SCH (21:29)
[2018-05-04] MEDS ORDERED: METHADONE 80 MG, METHADONE 10 MG, METHADONE 5 MG PO SCH (06:00)
[2018-05-04] MEDS ORDERED: METHADONE HCL 5 MG TABLET ONE (06:29)
[2018-05-04] MEDS: DOCUSATE SODIUM 100 MG CAPSULE (FP) PO SCH (06:30)
[2018-05-04] MEDS ORDERED: METHADONE HCL 10 MG TABLET ONE (06:30)
[2018-05-04] MEDS ORDERED: METHADONE HCL 40 MG DISPERSABLE TABLET ONE (06:30)
[2018-05-04 07:30] VITALS: TEMP 97.8
--- NOTE | 2018-05-04 08:29 | PN ---
Psychiatric Progress Note Vital Signs: Vital Signs Period Temp Pulse Resp BP Sys/Newell Pulse Ox Last 24 Hr 97.8 F 73-91 18-18 112-128/77-85 Date of Session: 05/04/18 Chief Complaint:: Discharge visit HPI: Opioid dependence ,Alcohol and Sedative dependence comorbid with PTSD, Bipolar disorder. ROS: Significant for Current Medications: Active Medications Generic Name Dose Route Start Last Admin Trade Name Freq PRN Reason Stop Dose Admin Acetaminophen 650 mg 04/06/18 13:12 04/16/18 18:53 Tylenol - PO 650 mg Q4H PRN Administration FEVER Al Hydroxide/Mg Hydroxide 30 ml 04/06/18 13:12 Mylanta Oral Suspension - PO Q6H PRN DYSPEPSIA Docusate Sodium 100 mg 04/27/18 22:00 05/04/18 06:30 Colace - PO 100 mg TID MARY GRACE Administration Escitalopram Oxalate 20 mg 04/06/18 17:00 05/03/18 10:04 Lexapro - PO 20 mg DAILY MARY GRACE Administration Eucalyptus/Menthol/Phenol/Sorbitol 1 each 04/06/18 13:12 Cepastat Lozenge - MM Q4H PRN SORE THROAT Furosemide 20 mg 04/07/18 10:00 05/03/18 10:04 Lasix - PO 20 mg DAILY MARY GRACE Administration Guaifenesin 10 ml 04/06/18 13:12 Robitussin Dm - PO Q6H PRN COUGH Hydroxyzine Pamoate 50 mg 04/06/18 13:12 05/03/18 21:29 Vistaril - PO 50 mg Q4H PRN Administration AGITATION Ibuprofen 400 mg 04/06/18 13:12 04/25/18 21:54 Motrin - PO 400 mg Q6H PRN Administration Pain Level 4-6 Levetiracetam 500 mg 04/06/18 22:00 05/03/18 21:29 Keppra - PO 500 mg BID MARY GRACE Administration Loperamide HCl 4 mg 04/06/18 13:12 Imodium - PO Q6H PRN DIARRHEA Magnesium Citrate 300 ml 04/06/18 13:12 Citroma - PO Q48H PRN CONSTIPATION Magnesium Hydroxide 30 ml 04/06/18 13:12 Milk Of Magnesia - PO DAILY PRN CONSTIPATION Melatonin 5 mg 04/06/18 22:00 04/11/18 22:10 Melatonin PO 5 mg HS PRN Administration INSOMNIA Methadone HCl 80 mg/ Methadone 95 mg 05/04/18 06:00 05/04/18 06:31 HCl 10 mg/ Methadone HCl 5 mg PO 05/11/18 05:59 95 mg DAILY@0600 MARY GRACE Administration Multivit/Folic Acid/Iron 1 tab 04/07/18 10:00 05/03/18 10:04 Vitamins (Sjr) - PO 1 tab DAILY MARY GRACE Administration Pseudoephedrine/Triprolidine 1 combo 04/06/18 13:12 Actifed - PO TID PRN NASAL CONGESTION Ranitidine HCl 150 mg 04/07/18 10:00 05/03/18 10:04 Zantac - PO 150 mg DAILY MARY GRACE Administration Thiamine HCl 100 mg 04/06/18 22:00 05/03/18 21:29 Vitamin B1 - PO 100 mg HS MARY GRACE Administration Current Side Effect: No Lab tests ordered: No Lab tests reviewed: Yes Provider note:: Patient completed this program today .She has met her treatment goals and will continue to address her issues on outpatient basis.Patient continue to find that Lexapro 20 mg po daily help to cope with depressed mood , anxiety.Script for 30 days provided. THrapy provided focusing on relapse prevention,coping skills,support utilization as well as other resourses of recovery maintanance has been provided. Patient is stable for discharge today. Total face to face time:: 25 Mental Status Exam - Mental Status Exam Alert and Oriented to: Time, Place, Person Cognitive Function: Grossly Intact Patient Appearance: Well Groomed Mood: Hopeful, Euthymic Affect: Appropriate, Mood Congruent Patient Behavior: Cooperative Voice Loudness: Normal Thought Process: Goal Oriented Thought Disorder: Not Present Hallucinations: Denies Suicidal Ideation: Denies Homicidal Ideation: Denies Insight/Judgement: Fair Sleep: Fair Appetite: Fair Muscle strength/Tone: Normal Gait/Station: Normal Psychiatric Treatment Plan - Problem List (1) Sedative dependence Current Visit: Yes (2) Nicotine dependence Current Visit: Yes Qualifiers: Nicotine product type: cigarettes (3) Opioid dependence on agonist therapy Current Visit: Yes (4) Seizure disorder Current Visit: Yes (5) Bipolar disorder Current Visit: Yes (6) PTSD (post-traumatic stress disorder) Current Visit: Yes (7) Alcohol dependence Current Visit: No
[2018-05-04] MEDS: ESCITALOPRAM OXALATE 20 MG TABLET (FP) PO SCH (09:54)
[2018-05-04] MEDS: FUROSEMIDE 20 MG TABLET (FP) PO SCH (09:54)
[2018-05-04] MEDS: levETIRAcetam 500 MG TABLET (FP) PO SCH (09:54)
[2018-05-04] MEDS: RANITIDINE HCL 150 MG TABLET (FP) PO SCH (09:54)
[2018-05-04 09:59] VITALS: BP 136/87; PULSE 88
[2018-05-04] MEDS: PRENATAL VITAMINS W/ FOLIC ACID TABLET (FP) PO SCH (11:00)
== END 2018-05-04 10:25 | disposition home or self-care (01) | DRG 772 ==
LOC: YASAS 11:49 → Y3E 11:50
PROVIDERS: ADMIT Psychiatry & Neurology Psychiatry; ATTEND Psychiatry & Neurology Psychiatry
PROC: HZ42ZZZ Group Counseling for Substance Abuse Treatment, Cognitive-Behavioral (ICD-10-PCS; principal; 2018-04-06)
DX: F10.20 Alcohol dependence, uncomplicated (principal); F11.20 Opioid dependence, uncomplicated; F13.20 Sedative, hypnotic or anxiolytic dependence, uncomplicated; F17.210 Nicotine dependence, cigarettes, uncomplicated; F31.9 Bipolar disorder, unspecified; F43.10 Post-traumatic stress disorder, unspecified; G40.909 Epilepsy, unspecified, not intractable, without status epilepticus; K21.9 Gastro-esophageal reflux disease without esophagitis; B18.2 Chronic viral hepatitis C
CPT/HCPCS: 36415

== ENCOUNTER 2020-08-09 11:31 | Inpatient (IN) | payer OTHER ==
[2020-08-09 13:17] VITALS: BMI 35.7
[2020-08-09] MEDS ORDERED: cloNIDine HCL 0.1 MG TABLET PO PRN (13:17)
[2020-08-09] MEDS ORDERED: MENTHOL/PHENOL 1 EACH UD MM PRN (13:17)
[2020-08-09] MEDS ORDERED: MAGNESIUM HYDROX 2400MG/30ML ORAL SUSPENSION 30 ML CUP PO PRN (13:17)
[2020-08-09] MEDS ORDERED: MAGNESIUM CITRATE 300 ML BOTTLE PO PRN (13:17)
[2020-08-09] MEDS ORDERED: ONDANSETRON *ODT* 4 MG TABLET SL PRN (13:17)
[2020-08-09] MEDS ORDERED: NICOTINE POLACRILEX 2 MG GUM BUC PRN (13:17)
[2020-08-09] MEDS ORDERED: BISMUTH SUBSALICYLATE 524 MG/30 ML UD PO PRN (13:17)
[2020-08-09] MEDS ORDERED: METHADONE HCL 10 MG TABLET (FOR DETOX USE ONLY) PO ONE (13:17)
[2020-08-09] MEDS ORDERED: ACETAMINOPHEN 325 MG TABLET (FP) PO PRN ×2 (13:17)
[2020-08-09] MEDS ORDERED: MAG HYDROX/AL HYDROX/SIMETH 30 ML UNIT-DOSE CUP PO PRN (13:17)
[2020-08-09] MEDS ORDERED: hydrOXYzine PAMOATE 25 MG CAPSULE (FP) PO SCH (14:00)
[2020-08-09] MEDS: chlordiazePOXIDE HCL 25 MG CAPSULE PO SCH ×3 (14:35→22:06)
[2020-08-09] MEDS: PRENATAL VITAMINS W/ FOLIC ACID TABLET (FP) PO SCH (14:35)
[2020-08-09] MEDS: NICOTINE 14 MG/24 HOURS TOPICAL PATCH TD SCH (14:35)
[2020-08-09] MEDS: hydrOXYzine PAMOATE 25 MG CAPSULE (FP) PO PRN ×2 (14:38→19:20)
[2020-08-09 15:35] LABS: HEMATOCRIT 41.4 % (32.4-45.2); HEMOGLOBIN 13.6 GM/dL (10.7-15.3); MCH 28.4 pg (25.7-33.7); MEAN CELL VOLUME 86.1 fl (80-96); MEAN PLT VOLUME 7.6 fl (7.5-11.1); PLATELET COUNT 320 K/MM3 (134-434); RBC 4.81 M/mm3 (3.60-5.2); RDW 15.4 % (11.6-15.6); WHITE BLOOD COUNT 11.5 K/mm3 (4.0-10.0)
[2020-08-09 15:38] LABS: POTASSIUM 3.9 mmol/L (3.5-5.1)
[2020-08-09 15:40] LABS: CALCIUM 8.9 mg/dL (8.5-10.1)
[2020-08-09 15:41] LABS: ALBUMIN 3.1 g/dl (3.4-5.0); BLOOD UREA NITROGEN 11.6 mg/dL (7-18)
[2020-08-09 15:44] LABS: BILIRUBIN,TOTAL 0.4 mg/dL (0.2-1); TOT PROT 6.8 g/dl (6.4-8.2)
[2020-08-09] MEDS: METHOCARBAMOL 500 MG TABLET PO PRN (18:11)
[2020-08-09] MEDS: IBUPROFEN 400 MG TABLET (FP) PO PRN (19:20)
[2020-08-09] MEDS ORDERED: MELATONIN 5 MG TABLETS PO SCH (22:00)
[2020-08-09] MEDS: THIAMINE HCL 100 MG TABLET (FP) PO SCH (22:06)
[2020-08-10] MEDS: chlordiazePOXIDE HCL 25 MG CAPSULE PO SCH ×4 (06:58→22:34)
[2020-08-10] MEDS: BUPRENORPHINE/NALOXONE 8 MG/2 MG FILM PACKET SL SCH (09:09)
[2020-08-10] MEDS: hydrOXYzine PAMOATE 25 MG CAPSULE (FP) PO PRN (09:09)
[2020-08-10] MEDS ORDERED: METHADONE (DETOX) 20 MG, METHADONE (DETOX) 5 MG PO ONE (10:00)
[2020-08-10] MEDS: PRENATAL VITAMINS W/ FOLIC ACID TABLET (FP) PO SCH (10:21)
[2020-08-10] MEDS: NICOTINE 14 MG/24 HOURS TOPICAL PATCH TD SCH (10:22)
[2020-08-10] MEDS: PANTOPRAZOLE 40 MG TABLET PO SCH (10:30)
[2020-08-10] MEDS: ESCITALOPRAM OXALATE 20 MG TABLET PO SCH (11:58)
[2020-08-10] MEDS: hydrOXYzine PAMOATE 50 MG CAPSULE (FP) PO PRN ×3 (11:59→22:37)
[2020-08-10] MEDS: METHOCARBAMOL 500 MG TABLET PO PRN (15:55)
[2020-08-10] MEDS: IBUPROFEN 400 MG TABLET (FP) PO PRN (17:52)
[2020-08-10] MEDS: SUVOREXANT 10 MG TABLET PO PRN (22:33)
[2020-08-10] MEDS: THIAMINE HCL 100 MG TABLET (FP) PO SCH (22:34)
[2020-08-10] MEDS: MIRTAZAPINE 15 MG TABLET (FP) PO SCH (22:34)
[2020-08-11] MEDS: chlordiazePOXIDE HCL 25 MG CAPSULE PO SCH ×4 (05:54→22:08)
[2020-08-11] MEDS: METHOCARBAMOL 500 MG TABLET PO PRN ×2 (05:55→17:26)
[2020-08-11] MEDS: hydrOXYzine PAMOATE 50 MG CAPSULE (FP) PO PRN ×5 (05:56→22:10)
[2020-08-11] MEDS ORDERED: METHADONE HCL 10 MG TABLET (FOR DETOX USE ONLY) PO ONE (10:00)
[2020-08-11] MEDS: PANTOPRAZOLE 40 MG TABLET PO SCH (10:30)
[2020-08-11] MEDS: ESCITALOPRAM OXALATE 20 MG TABLET PO SCH (10:30)
[2020-08-11] MEDS: PRENATAL VITAMINS W/ FOLIC ACID TABLET (FP) PO SCH (10:31)
[2020-08-11] MEDS: BUPRENORPHINE/NALOXONE 8 MG/2 MG FILM PACKET SL SCH (10:31)
[2020-08-11] MEDS: NICOTINE 14 MG/24 HOURS TOPICAL PATCH TD SCH (10:31)
[2020-08-11] MEDS: LIDOCAINE 5% TOPICAL PATCH TP SCH (13:48)
[2020-08-11] MEDS: chlordiazePOXIDE HCL 25 MG CAPSULE PO PRN ×2 (13:51→19:14)
[2020-08-11] MEDS: HYDROCORTISONE 1% TOPICAL CREAM 30 GM TUBE TP SCH (13:53)
[2020-08-11] MEDS: metroNIDAZOLE 250 MG TABLET PO SCH ×2 (15:11→22:08)
[2020-08-11] MEDS: DOCUSATE SODIUM 100 MG CAPSULE (FP) PO SCH ×2 (15:12→22:08)
[2020-08-11] MEDS: IBUPROFEN 400 MG TABLET (FP) PO PRN (17:28)
[2020-08-11] MEDS: THIAMINE HCL 100 MG TABLET (FP) PO SCH (22:08)
[2020-08-11] MEDS: MIRTAZAPINE 15 MG TABLET (FP) PO SCH (22:08)
[2020-08-11] MEDS: SUVOREXANT 10 MG TABLET PO PRN (22:09)
[2020-08-11] MEDS: LIDOCAINE PATCH REMOVAL MC SCH (22:12)
[2020-08-12] MEDS: chlordiazePOXIDE HCL 10 MG CAPSULE PO PRN ×2 (03:26→13:58)
[2020-08-12] MEDS: hydrOXYzine PAMOATE 50 MG CAPSULE (FP) PO PRN ×4 (03:27→22:09)
[2020-08-12] MEDS: metroNIDAZOLE 250 MG TABLET PO SCH ×3 (05:57→22:07)
[2020-08-12] MEDS: chlordiazePOXIDE HCL 10 MG CAPSULE PO SCH ×4 (05:57→22:09)
[2020-08-12] MEDS: DOCUSATE SODIUM 100 MG CAPSULE (FP) PO SCH ×3 (05:58→22:06)
[2020-08-12] MEDS: METHOCARBAMOL 500 MG TABLET PO PRN ×2 (06:02→15:50)
[2020-08-12] MEDS ORDERED: METHADONE (DETOX) 10 MG, METHADONE (DETOX) 5 MG PO ONE (10:00)
[2020-08-12] MEDS: HYDROCORTISONE 1% TOPICAL CREAM 30 GM TUBE TP SCH (10:05)
[2020-08-12] MEDS: ESCITALOPRAM OXALATE 20 MG TABLET PO SCH (10:06)
[2020-08-12] MEDS: BUPRENORPHINE/NALOXONE 8 MG/2 MG FILM PACKET SL SCH (10:06)
[2020-08-12] MEDS: PANTOPRAZOLE 40 MG TABLET PO SCH (10:06)
[2020-08-12] MEDS: LIDOCAINE 5% TOPICAL PATCH TP SCH (10:10)
[2020-08-12] MEDS: NICOTINE 14 MG/24 HOURS TOPICAL PATCH TD SCH (10:10)
[2020-08-12] MEDS: PRENATAL VITAMINS W/ FOLIC ACID TABLET (FP) PO SCH (10:11)
[2020-08-12 11:45] LABS: HIV INTERPRETATION NEGATIVE (NEGATIVE)
[2020-08-12] MEDS: SUVOREXANT 10 MG TABLET PO PRN (22:06)
[2020-08-12] MEDS: THIAMINE HCL 100 MG TABLET (FP) PO SCH (22:06)
[2020-08-12] MEDS: MIRTAZAPINE 15 MG TABLET (FP) PO SCH (22:06)
[2020-08-12] MEDS: LIDOCAINE PATCH REMOVAL MC SCH (22:07)
[2020-08-13] MEDS ORDERED: chlordiazePOXIDE HCL 10 MG CAPSULE PO SCH (05:00)
[2020-08-13] MEDS: DOCUSATE SODIUM 100 MG CAPSULE (FP) PO SCH ×2 (07:18→14:15)
[2020-08-13] MEDS: metroNIDAZOLE 250 MG TABLET PO SCH ×2 (07:19→14:14)
[2020-08-13] MEDS: hydrOXYzine PAMOATE 50 MG CAPSULE (FP) PO PRN ×3 (07:22→14:14)
[2020-08-13] MEDS: METHOCARBAMOL 500 MG TABLET PO PRN (07:25)
[2020-08-13] MEDS ORDERED: METHADONE HCL 10 MG TABLET (FOR DETOX USE ONLY) PO ONE (10:00)
[2020-08-13] MEDS: ESCITALOPRAM OXALATE 20 MG TABLET PO SCH (10:29)
[2020-08-13] MEDS: PRENATAL VITAMINS W/ FOLIC ACID TABLET (FP) PO SCH (10:30)
[2020-08-13] MEDS: LIDOCAINE 5% TOPICAL PATCH TP SCH (10:30)
[2020-08-13] MEDS: NICOTINE 14 MG/24 HOURS TOPICAL PATCH TD SCH (10:30)
[2020-08-13] MEDS: BUPRENORPHINE/NALOXONE 8 MG/2 MG FILM PACKET SL SCH (10:30)
[2020-08-13] MEDS: HYDROCORTISONE 1% TOPICAL CREAM 30 GM TUBE TP SCH (10:31)
[2020-08-13] MEDS: PANTOPRAZOLE 40 MG TABLET PO SCH (10:31)
[2020-08-13 12:58] VITALS: BP 146/88; PULSE 94; TEMP 98
[2020-08-14] MEDS ORDERED: chlordiazePOXIDE HCL 10 MG CAPSULE PO ONE (05:00)
[2020-08-14] MEDS ORDERED: METHADONE HCL 5 MG TABLET (FOR DETOX USE ONLY) PO ONE (06:00)
== END 2020-08-13 16:32 | disposition left against medical advice (07) | DRG 770 ==
LOC: YASAS 11:31 → Y6N 13:48
PROVIDERS: ADMIT Allergy & Immunology; ATTEND Allergy & Immunology
PROC: HZ2ZZZZ Detoxification Services for Substance Abuse Treatment (ICD-10-PCS; principal; 2020-08-09)
DX: F10.230 Alcohol dependence with withdrawal, uncomplicated (principal); F11.23 Opioid dependence with withdrawal; F14.20 Cocaine dependence, uncomplicated; F17.210 Nicotine dependence, cigarettes, uncomplicated; F19.282 Other psychoactive substance dependence with psychoactive substance-induced sleep disorder; F19.24 Other psychoactive substance dependence with psychoactive substance-induced mood disorder; F31.9 Bipolar disorder, unspecified; F43.10 Post-traumatic stress disorder, unspecified; F60.3 Borderline personality disorder; F63.3 Trichotillomania; F90.9 Attention-deficit hyperactivity disorder, unspecified type; D72.829 Elevated white blood cell count, unspecified; K21.9 Gastro-esophageal reflux disease without esophagitis; G40.909 Epilepsy, unspecified, not intractable, without status epilepticus; B18.2 Chronic viral hepatitis C; M54.5 Low back pain; R03.0 Elevated blood-pressure reading, without diagnosis of hypertension; R35.0 Frequency of micturition; R73.03 Prediabetes; Z62.810 Personal history of physical and sexual abuse in childhood; Z91.410 Personal history of adult physical and sexual abuse; Z91.5 Personal history of self-harm; Z59.0 Homelessness
CPT/HCPCS: 36415; 80053; 82962; 85027; 86780; 87086; 87186; 87389; 93005; 93010; C9803; U0003

== ENCOUNTER 2020-12-19 09:45 | Inpatient (IN) | payer OTHER ==
[2020-12-19 10:26] VITALS: BMI 29.9
[2020-12-19] MEDS ORDERED: MAGNESIUM HYDROX 2400MG/30ML ORAL SUSPENSION 30 ML CUP PO PRN (11:43)
[2020-12-19] MEDS ORDERED: NICOTINE POLACRILEX 2 MG GUM BUC PRN (11:43)
[2020-12-19] MEDS ORDERED: ONDANSETRON *ODT* 4 MG TABLET SL PRN (11:43)
[2020-12-19] MEDS ORDERED: METHADONE HCL 10 MG TABLET (FOR DETOX USE ONLY) PO ONE (11:43)
[2020-12-19] MEDS ORDERED: MENTHOL/PHENOL 1 EACH UD MM PRN (11:43)
[2020-12-19] MEDS ORDERED: MAGNESIUM CITRATE 300 ML BOTTLE PO PRN (11:43)
[2020-12-19] MEDS ORDERED: cloNIDine HCL 0.1 MG TABLET PO PRN (11:43)
[2020-12-19] MEDS ORDERED: IBUPROFEN 400 MG TABLET (FP) PO PRN (11:43)
[2020-12-19] MEDS ORDERED: NALOXONE (NARCAN) HCL 4 MG/0.1 ML SPRAY NS PRN (11:43)
[2020-12-19] MEDS ORDERED: ACETAMINOPHEN 325 MG TABLET (FP) PO PRN ×2 (11:43)
[2020-12-19] MEDS ORDERED: BISMUTH SUBSALICYLATE 262 MG/15 ML BTL PO PRN (11:43)
[2020-12-19] MEDS ORDERED: MAG HYDROX/AL HYDROX/SIMETH 30 ML UNIT-DOSE CUP PO PRN (11:43)
[2020-12-19] MEDS: NICOTINE 21 MG/24 HOURS TOPICAL PATCH TD SCH (12:10)
[2020-12-19 13:11] LABS: HEMOGLOBIN 12.6 GM/dL (10.7-15.3); MCH 28.7 pg (25.7-33.7); MCHC 33.1 g/dl (32.0-36.0); PLATELET COUNT 354 K/MM3 (134-434); RBC 4.37 M/mm3 (3.60-5.2); RDW 13.3 % (11.6-15.6); WHITE BLOOD COUNT 13.7 K/mm3 (4.0-10.0)
[2020-12-19 13:28] LABS: POTASSIUM 3.4 mmol/L (3.5-5.1)
[2020-12-19 13:30] LABS: CALCIUM 8.9 mg/dL (8.5-10.1)
[2020-12-19 13:31] LABS: ALBUMIN 3.2 g/dl (3.4-5.0)
[2020-12-19 13:34] LABS: CREATININE 0.8 mg/dL (0.55-1.3)
[2020-12-19 13:35] LABS: BILIRUBIN,TOTAL 0.2 mg/dL (0.2-1); TOT PROT 6.8 g/dl (6.4-8.2)
[2020-12-19] MEDS: hydrOXYzine PAMOATE 25 MG CAPSULE (FP) PO SCH ×3 (14:28→22:12)
[2020-12-19 18:04] LABS: EPI CELLS 10 /uL (0-25.1); HYALINE CASTS 6 /uL (0-3.1); PH,URINE 6.5 (5.0-8.0); URINE APPEARANCE CLEAR; URINE BACTERIA 322 /uL (0-1359); URINE BILIRUBIN NEGATIVE (NEGATIVE); URINE COLOR YELLOW; URINE GLUCOSE (UA) NEGATIVE (NEGATIVE); URINE KETONE NEGATIVE (NEGATIVE); URINE LEUK ESTERASE TRACE (NEGATIVE); URINE NITRITE NEGATIVE (NEGATIVE); URINE PROTEIN NEGATIVE (NEGATIVE); URINE RBC 12 /uL (0-23.9); URINE WBC 115 /uL (0-25.8)
[2020-12-19] MEDS: METHOCARBAMOL 500 MG TABLET PO PRN (19:45)
[2020-12-19] MEDS: SUVOREXANT 10 MG TABLET PO PRN (22:12)
[2020-12-19] MEDS: THIAMINE HCL 100 MG TABLET (FP) PO SCH (22:12)
[2020-12-19] MEDS: MELATONIN 5 MG TABLETS PO SCH (22:13)
[2020-12-20] MEDS: hydrOXYzine PAMOATE 25 MG CAPSULE (FP) PO SCH ×5 (06:14→21:59)
[2020-12-20] MEDS ORDERED: METHADONE HCL 5 MG TABLET (FOR DETOX USE ONLY) ONE (08:58)
[2020-12-20] MEDS ORDERED: METHADONE HCL 10 MG TABLET (FOR DETOX USE ONLY) ONE (08:58)
[2020-12-20] MEDS: NICOTINE 21 MG/24 HOURS TOPICAL PATCH TD SCH (09:29)
[2020-12-20] MEDS: METHOCARBAMOL 500 MG TABLET PO PRN (09:30)
[2020-12-20] MEDS: PRENATAL VITAMINS W/ FOLIC ACID TABLET (FP) PO SCH (09:31)
[2020-12-20] MEDS ORDERED: METHADONE (DETOX) 20 MG, METHADONE (DETOX) 5 MG PO ONE (10:00)
[2020-12-20] MEDS ORDERED: FLUCONAZOLE 150 MG TABLET PO ONE (15:16)
[2020-12-20] MEDS ORDERED: FLUCONAZOLE 50 MG TABLET PO ONE (15:16)
[2020-12-20] MEDS: diazePAM 5 MG TABLET PO PRN ×2 (15:58→21:59)
[2020-12-20] MEDS: POTASSIUM CHLORIDE ORAL LIQUID 20 MEQ/15 ML PO SCH (21:59)
[2020-12-20] MEDS: THIAMINE HCL 100 MG TABLET (FP) PO SCH (21:59)
[2020-12-20] MEDS: SUVOREXANT 10 MG TABLET PO PRN (21:59)
[2020-12-20] MEDS: MELATONIN 5 MG TABLETS PO SCH (21:59)
[2020-12-21] MEDS: hydrOXYzine PAMOATE 25 MG CAPSULE (FP) PO SCH ×4 (05:38→17:13)
[2020-12-21] MEDS: diazePAM 5 MG TABLET PO PRN ×3 (05:40→17:12)
[2020-12-21] MEDS: PRENATAL VITAMINS W/ FOLIC ACID TABLET (FP) PO SCH (09:12)
[2020-12-21] MEDS: POTASSIUM CHLORIDE ORAL LIQUID 20 MEQ/15 ML PO SCH (09:12)
[2020-12-21] MEDS: NICOTINE 21 MG/24 HOURS TOPICAL PATCH TD SCH (09:13)
[2020-12-21] MEDS ORDERED: METHADONE HCL 10 MG TABLET (FOR DETOX USE ONLY) PO ONE (10:00)
[2020-12-21] MEDS ORDERED: FAMOTIDINE 20 MG TABLET PO SCH (10:15)
[2020-12-21 10:38] LABS: BASO % 0.6 % (0-2.0); EOS % 1.6 % (0-4.5); HEMATOCRIT 37.9 % (32.4-45.2); HEMOGLOBIN 12.7 GM/dL (10.7-15.3); LYMPH % 31.2 % (8-40); MCHC 33.5 g/dl (32.0-36.0); MEAN CELL VOLUME 86.5 fl (80-96); MEAN PLT VOLUME 8.2 fl (7.5-11.1); MONO % 9.1 % (3.8-10.2); NEUT % 57.5 % (42.8-82.8); PLATELET COUNT 327 K/MM3 (134-434); RBC 4.38 M/mm3 (3.60-5.2); RDW 13.1 % (11.6-15.6); WHITE BLOOD COUNT 11.2 K/mm3 (4.0-10.0)
[2020-12-21] MEDS: METHOCARBAMOL 500 MG TABLET PO PRN (17:12)
[2020-12-21 18:07] VITALS: BP 123/85; PULSE 84; TEMP 96.9
[2020-12-22] MEDS ORDERED: METHADONE (DETOX) 10 MG, METHADONE (DETOX) 5 MG PO ONE (10:00)
[2020-12-23 05:11] LABS: SARS-CoV-2 NAA Not Detected (Not Detected)
[2020-12-23] MEDS ORDERED: METHADONE HCL 10 MG TABLET (FOR DETOX USE ONLY) PO ONE (10:00)
[2020-12-24] MEDS ORDERED: METHADONE HCL 5 MG TABLET (FOR DETOX USE ONLY) PO ONE (06:00)
== END 2020-12-21 20:00 | disposition left against medical advice (07) | DRG 770 ==
LOC: YASAS 09:45 → Y3N 11:20
PROVIDERS: ADMIT Allergy & Immunology; ATTEND Allergy & Immunology
PROC: HZ2ZZZZ Detoxification Services for Substance Abuse Treatment (ICD-10-PCS; principal; 2020-12-19)
DX: F11.23 Opioid dependence with withdrawal (principal); F14.20 Cocaine dependence, uncomplicated; F19.20 Other psychoactive substance dependence, uncomplicated; F17.210 Nicotine dependence, cigarettes, uncomplicated; F19.24 Other psychoactive substance dependence with psychoactive substance-induced mood disorder; F31.9 Bipolar disorder, unspecified; F63.3 Trichotillomania; G40.909 Epilepsy, unspecified, not intractable, without status epilepticus; E11.9 Type 2 diabetes mellitus without complications; K21.9 Gastro-esophageal reflux disease without esophagitis; N89.8 Other specified noninflammatory disorders of vagina; Z91.410 Personal history of adult physical and sexual abuse; Z86.19 Personal history of other infectious and parasitic diseases; Z56.0 Unemployment, unspecified; Z59.0 Homelessness; Z91.19 Patient's noncompliance with other medical treatment and regimen
CPT/HCPCS: 36415; 80053; 81003; 81025; 85025; 85027; 86780; 87086; 87186; 87491; 87591; 87661; C9803; U0003; U0005

== ENCOUNTER 2023-03-06 13:54 | Inpatient (IN) | payer OTHER ==
[2023-03-06 15:31] VITALS: BMI 19.1
[2023-03-06] MEDS ORDERED: AMMONIUM LACTATE 12% LOTION 225 GM BOTTLE TP PRN (18:23)
[2023-03-06] MEDS ORDERED: ACETAMINOPHEN 325 MG TABLET (FP) PO PRN (18:23)
[2023-03-06] MEDS ORDERED: BENZONATATE 200 MG CAPSULE PO PRN (18:23)
[2023-03-06] MEDS ORDERED: POLYETHYLENE GLYCOL (HEALTHYLAX) 3350 17 GM PACKET PO PRN (18:23)
[2023-03-06] MEDS ORDERED: NICOTINE 7 MG/24 HOURS TOPICAL PATCH TD PRN (18:23)
[2023-03-06] MEDS ORDERED: P-EPHED 60MG/TRIPROLIDI 2.5MG TABLET PO PRN (18:23)
[2023-03-06] MEDS ORDERED: MAG HYDROX/AL HYDROX/SIMETH 30 ML UNIT-DOSE CUP PO PRN (18:23)
[2023-03-06] MEDS ORDERED: MAGNESIUM HYDROX 2400MG/30ML ORAL SUSPENSION 30 ML CUP PO PRN (18:23)
[2023-03-06] MEDS ORDERED: TUBERCULIN PPD 5 TU/0.1ML SYRINGE (IN PATIENT USE ONLY) ID ONE (18:23)
[2023-03-06] MEDS ORDERED: NALOXONE HCL (KLOXXADO) 8 MG SPRAY NS PRN (18:23)
[2023-03-06] MEDS ORDERED: IBUPROFEN 600 MG TABLET (FP) PO PRN (18:23)
[2023-03-06] MEDS ORDERED: BENZOCAINE/MENTHOL (CHLORASEPTIC ) LOZENGE MM PRN (18:23)
[2023-03-06] MEDS ORDERED: NALOXONE HCL 0.4 MG/ML VIAL IM PRN (18:23)
[2023-03-06] MEDS ORDERED: NICOTINE 10 MG CARTRIDGE (INHALER) IH PRN (18:23)
[2023-03-06] MEDS ORDERED: COLLOIDAL OATMEAL 1 BAR EACH TP PRN (18:23)
[2023-03-06] MEDS ORDERED: IBUPROFEN 400 MG TABLET (FP) PO PRN (18:23)
[2023-03-06] MEDS ORDERED: guaiFENesin 600 MG TABLET.ER (FP) PO PRN (18:23)
[2023-03-06] MEDS ORDERED: TUBERCULIN PPD 5 TU/0.1ML VIAL ID ONE (19:00)
[2023-03-06] MEDS ORDERED: MELATONIN 5 MG TABLETS PO SCH (22:00)
[2023-03-06] MEDS: SULFAMETHOXAZOLE/TRIMETHOPRIM 800MG/160MG D.S. TABLET PO SCH (22:37)
[2023-03-06] MEDS: THIAMINE HCL 100 MG TABLET (FP) PO SCH (22:38)
[2023-03-07] MEDS ORDERED: methaDONE HCL 10 MG TABLET PO ONE (09:30)
[2023-03-07] MEDS: PRENATAL VITAMINS W/ FOLIC ACID TABLET (FP) PO SCH (10:15)
[2023-03-07] MEDS: SULFAMETHOXAZOLE/TRIMETHOPRIM 800MG/160MG D.S. TABLET PO SCH ×2 (10:15→21:34)
[2023-03-07 11:04] LABS: POTASSIUM 4.3 mmol/L (3.5-5.1)
[2023-03-07 11:06] LABS: BLOOD UREA NITROGEN 9.5 mg/dL (7-18); CALCIUM 8.7 mg/dL (8.5-10.1)
[2023-03-07 11:08] LABS: HEMOGLOBIN 12.9 GM/dL (10.7-15.3); MCH 26.7 pg (25.7-33.7); MCHC 33.2 g/dl (32.0-36.0); MEAN CELL VOLUME 80.4 fl (80-96); MEAN PLT VOLUME 7.3 fl (7.5-11.1); PLATELET COUNT 300 10^3/uL (134-434); RBC 4.85 M/mm3 (3.60-5.2); RDW 15.9 % (11.6-15.6); WHITE BLOOD COUNT 7.7 K/mm3 (4.0-10.0)
[2023-03-07 11:09] LABS: CREATININE 0.6 mg/dL (0.55-1.3)
[2023-03-07 11:11] LABS: BILIRUBIN,TOTAL 0.2 mg/dL (0.2-1); TOT PROT 6.6 g/dl (6.4-8.2)
[2023-03-07 11:33] LABS: SYPHILIS W/ RPR CONF NON-REACTIVE (NONREACTIVE)
[2023-03-07] MEDS: LOPERAMIDE HCL 2 MG CAPSULE PO PRN (11:36)
[2023-03-07 12:10] LABS: HIV INTERPRETATION NEGATIVE (NEGATIVE)
[2023-03-07] MEDS: hydrOXYzine PAMOATE 25 MG CAPSULE (FP) PO PRN ×2 (15:00→21:35)
[2023-03-07] MEDS: THIAMINE HCL 100 MG TABLET (FP) PO SCH (21:34)
[2023-03-07] MEDS: SUVOREXANT 10 MG TABLET PO PRN (21:37)
[2023-03-08] MEDS ORDERED: methaDONE HCL 10 MG TABLET PO SCH (06:00)
[2023-03-08] MEDS: PRENATAL VITAMINS W/ FOLIC ACID TABLET (FP) PO SCH (09:59)
[2023-03-08] MEDS: SULFAMETHOXAZOLE/TRIMETHOPRIM 800MG/160MG D.S. TABLET PO SCH ×2 (10:00→21:11)
[2023-03-08] MEDS: hydrOXYzine PAMOATE 25 MG CAPSULE (FP) PO PRN (17:02)
[2023-03-08] MEDS: LOPERAMIDE HCL 2 MG CAPSULE PO PRN (20:30)
[2023-03-08] MEDS: SUVOREXANT 10 MG TABLET PO PRN (21:11)
[2023-03-08] MEDS: THIAMINE HCL 100 MG TABLET (FP) PO SCH (21:11)
[2023-03-09 07:24] VITALS: RESP 18
[2023-03-09] MEDS: PRENATAL VITAMINS W/ FOLIC ACID TABLET (FP) PO SCH (09:52)
[2023-03-09] MEDS: SULFAMETHOXAZOLE/TRIMETHOPRIM 800MG/160MG D.S. TABLET PO SCH ×2 (09:52→21:31)
[2023-03-09] MEDS: hydrOXYzine PAMOATE 25 MG CAPSULE (FP) PO PRN ×2 (09:53→16:22)
[2023-03-09] MEDS: NICOTINE POLACRILEX 2 MG GUM BUC PRN ×2 (16:20→20:33)
[2023-03-09] MEDS: SUVOREXANT 10 MG TABLET PO PRN (21:30)
[2023-03-09] MEDS: THIAMINE HCL 100 MG TABLET (FP) PO SCH (21:31)
[2023-03-10 07:38] VITALS: TEMP 97.6
[2023-03-10 09:21] VITALS: BP 116/76; PULSE 82
[2023-03-10] MEDS: hydrOXYzine PAMOATE 25 MG CAPSULE (FP) PO PRN (10:04)
[2023-03-10] MEDS: PRENATAL VITAMINS W/ FOLIC ACID TABLET (FP) PO SCH (10:04)
[2023-03-10] MEDS: SULFAMETHOXAZOLE/TRIMETHOPRIM 800MG/160MG D.S. TABLET PO SCH (10:04)
[2023-03-10] MEDS: NICOTINE POLACRILEX 2 MG GUM BUC PRN ×2 (10:05→15:35)
[2023-03-10 12:04] LABS: EPI CELLS >36 /uL (0-25.1); HYALINE CASTS 4 /uL (0-3.1); URINE APPEARANCE CLEAR; URINE BACTERIA 80 /uL (0-1359); URINE BILIRUBIN NEGATIVE (NEGATIVE); URINE COLOR YELLOW; URINE GLUCOSE (UA) NEGATIVE (NEGATIVE); URINE KETONE NEGATIVE (NEGATIVE); URINE LEUK ESTERASE 2+ (NEGATIVE); URINE NITRITE NEGATIVE (NEGATIVE); URINE PROTEIN NEGATIVE (NEGATIVE); URINE RBC 10 /uL (0-23.9); URINE UROBILINOGEN 0.2 mg/dL (0.2-1.0); URINE WBC 179 /uL (0-25.8)
[2023-03-10] MEDS ORDERED: SUVOREXANT 10 MG TABLET PO PRN (22:00)
== END 2023-03-10 16:56 | disposition left against medical advice (07) | DRG 770 ==
LOC: YASAS 13:54 → Y5N 18:44
PROVIDERS: ADMIT Allergy & Immunology; ATTEND Psychiatry & Neurology Pain Medicine
PROC: HZ42ZZZ Group Counseling for Substance Abuse Treatment, Cognitive-Behavioral (ICD-10-PCS; principal; 2023-03-06)
DX: F14.20 Cocaine dependence, uncomplicated (principal); F11.20 Opioid dependence, uncomplicated; F12.20 Cannabis dependence, uncomplicated; F17.210 Nicotine dependence, cigarettes, uncomplicated; F31.9 Bipolar disorder, unspecified; F41.9 Anxiety disorder, unspecified; F43.10 Post-traumatic stress disorder, unspecified; K21.9 Gastro-esophageal reflux disease without esophagitis; Z86.19 Personal history of other infectious and parasitic diseases
CPT/HCPCS: 36415; 80053; 81003; 81025; 85027; 86780; 86803; 87389; 87522; 87635; 93005; 93010